=== PATIENT | male | born 1955 | race Caucasian/White ===

== ENCOUNTER → 2018-03-25 10:46 | Outpatient (CLI) | payer OTHER, SELFPAY ==
--- NOTE | 2018-03-25 | DI.NM.S_ITS ---
PROCEDURE: NM BONE SCAN WHOLE BODY RADIOPHARMACEUTICAL: 21.5 mCi Tc-99m MDP IV. INDICATIONS: CHRONIC PAIN OF RIGHT KNEE TECHNIQUE: Delayed whole-body scintigrams were obtained approximately 3-4 hours after intravenous injection of radiotracer. Anterior and posterior views were acquired from vertex to feet. Additional left and right oblique views of the knees were obtained. COMPARISON: [facility] [place], CR, KNEE SERIES RT, 06/20/2016, 14:26. [facility] [place], CR, XR KNEE ARTHRITIC SERIES RT, 12/13/2017, 15:42. [facility] [place], CR, XR KNEE ARTHRITIC SERIES RT, 04/17/2017, 15:32. [facility] [place], CR, XR KNEE ARTHRITIC SERIES RT, 02/13/2017, 16:29. [facility] [place], CR, KNEE SERIES RT, 01/12/2017, 11:17. [facility] [place], CR, KNEE SERIES RT, 12/13/2016, 14:17. [facility] [place], CR, XR KNEE ARTHRITIC SERIES RT, 03/19/2018, 13:02. FINDINGS: There is right knee medial hemiarthroplasty. There is increased uptake along the prosthesis and bone interface in the medial tibial plateau. The comparison x-ray of the knee shows subtle lucency at the bone/prosthesis interface. The scintigraphic findings are concerning for prosthesis loosening. No lesions are identified in skull, sternum, clavicles, scapulae, ribs, bony pelvis, and visualized shafts of the long bones. There is scoliosis. Foci of increased uptake in thoracic and lumbar spine demonstrate distribution indistinguishable from degenerative disc and facet disease. There are foci of increased periarticular activity involving shoulders bilaterally, wrists bilaterally, ankles and feet bilaterally, compatible with degenerative/arthritic changes. There is normal soft tissue uptake. IMPRESSION: 1. There is increased uptake in the right knee along the medial compartment at the prosthesis-bone interface. This correlates with radiolucency in the same area on x-ray, concerning for prosthesis loosening. Recommend clinical correlation. 2. Degenerative changes in spine and multiple peripheral joints. Dictated by: Tomi Live M.D. on 03/25/2018 at 16:09 Approved by: Tomi Live M.D. on 03/25/2018 at 17:15
== END ==
PROVIDERS: Family Provider Internal Medicine; PCP Internal Medicine; Visit Provider Physician Assistant Surgical
DX: M25.561 Pain in right knee (principal); M47.816 Spondylosis without myelopathy or radiculopathy, lumbar region; M47.814 Spondylosis without myelopathy or radiculopathy, thoracic region; M15.0 Primary generalized (osteo)arthritis; G89.29 Other chronic pain; Z96.651 Presence of right artificial knee joint
CPT/HCPCS: 78306; A9503

== ENCOUNTER 2018-04-12 11:04 | Inpatient (IN) | payer OTHER, SELFPAY ==
[2018-04-11 10:14] VITALS: BMI 36.4
[2018-04-12] VITALS (12 sets, daily range): BP systolic 97–158; BP diastolic 60–106; PULSE 68–92; RESP 10–20; TEMP 36.2–36.7; O2SAT 2–96; BMI 36.4
--- NOTE | 2018-04-12 11:21 | DI.RAD.S_ITS ---
PROCEDURE: XR KNEE RT 1TO2V INDICATIONS: prosthesis placement (post op) TECHNIQUE: 2 view(s) of the knee acquired. COMPARISON: [facility] [place], CR, XR KNEE ARTHRITIC SERIES RT, 04/02/2018, 13:39. FINDINGS: Bones: Patient is status post right knee joint arthroplasty. Hardware components are in expected positions. Visualized bony structures appear intact. Soft tissues: Overlying postoperative changes are noted, including a surgical drain projecting over the anterior distal femur, overlying surgical carla, subcutaneous emphysema, and a moderate knee joint effusion. IMPRESSION: Postsurgical changes of right total knee arthroplasty. Dictated by: Hemant Ceja M.D. on 04/12/2018 at 18:41 Approved by: Hemant Ceja M.D. on 04/12/2018 at 18:44
[2018-04-12] MEDS: LACTATED RINGERS 1,000 ML 42 ML IV ×2 (11:45→16:03)
[2018-04-12] MEDS: VANCOMYCIN 1,000 MG/200 ML FROZ.PIGGY 200 MG IV (13:18)
--- NOTE | 2018-04-12 14:00 | SUR.PREOP ---
Block start time [1346] . Monitoring initiated and maintained throughout procedure. Medications given per anesthesiologist instructions. Patient remained stable throughout procedure, no adverse reactions noted. Block end time [1356].
[2018-04-12] MEDS: CEFAZOLIN 2 GM/100 ML FROZ.PIGGY IV ×2 (14:20→22:46)
[2018-04-12] MEDS: TRANEXAMIC ACID 1,000 MG VIAL 1000 MG INJ ×2 (14:30→17:31)
--- NOTE | 2018-04-12 14:48 | SUR.OPER ---
Supine on padded OR bed. Pillow under head, arms secured on padded armboards <90 degree abduction. Safety belt across torso. Non-operative leg secured with tape over blanket over lower leg. Operative leg secured in DeMayo/Ruy positioner. Foam padded brace at thigh of operative leg.
[2018-04-12] MEDS: BUPIVACAINE LIPOSOME 266 MG/20 ML VIAL INJ (14:58)
[2018-04-12] MEDS: BUPIVACAINE 0.25% W/ EPI VIAL 50 ML INJ (14:58)
[2018-04-12] MEDS: POVIDONE-IODINE 15 ML, SODIUM CHLORIDE 0.9% 250 ML TOP (15:00)
--- NOTE | 2018-04-12 15:24 | PM.PROC.1 ---
Procedures Date/Time Date of procedure: 04/12/18 Time of procedure: 13:43 General Procedure description: Ultrasound guided adductor canal nerve block for post op pain control after right TKA by Dr. Guido. Risk and benefits of procedure discussed with patient. ASA monitoring applied to patient. O2 given via nasal cannula. 1 mg Versed and 50 mcg fentanyl given for procedural sedation. Skin site was prepped with chlorhexidine and allowed to fully dry. Sterile gloves, mask, hat and probe cover were used to maintain sterility. 2% lidocaine and 30ga needle was used to make a small skin wheal at needle insertion site. Under ultrasound guidance, a 21ga 100mm Pajunk needle was directed into the adductor canal near femoral artery and saphenous nerve at the level of mid thigh. Patient reported no parasthesias. After negative aspiration, 20 mL 0.5% ropivicaine and 10mg dexamethasone were injected around saphenous nerve. Patient tolerated procedure well.
--- NOTE | 2018-04-12 15:42 | SUR.OPER ---
Previous uni-compartment knee components removed and discarded, unable to read info on the implants.
--- NOTE | 2018-04-12 15:43 | SUR.OPER ---
Cultures submitted, 1) Right Knee tissue for PCD 2) right femoral tissue 3) right knee synovium fluid 4) right knee tibial tissue
[2018-04-12] MEDS: VANCOMYCIN 1,000 MG VIAL 1000 MG INTRA-ARTI (16:09)
--- NOTE | 2018-04-12 18:18 | PM.PREOP ---
Pre-operative Note Interval Note Pre-op Check: Yes History & Physical Reviewed by Physician and Yes Exam Performed Changes: No
--- NOTE | 2018-04-12 18:21 | P.OP_ITS ---
Operative Date/Time/Diagnoses Date of procedure: 04/12/18 Time of procedure: 18:04 Pre-op diagnosis: loose tibial component after right medial uni Post-op diagnosis: same Procedure & Clinicians Procedure: revision right total knee Same procedure as scheduled: Yes Indications: Patient has a history of a previous right knee medial compartment arthroplasty. The patient has had progressively worsening right knee pain with radiographic changes consistent with early tibial loosening including total body bone scan which was hot underneath the tibia. He was worked up with labs preoperatively which were not consistent with infection. He did not have previous problems with wound healing. Non-operative management has failed and the patient has requested revision right total knee replacement. The risks, benefits and alternatives to surgery were discussed with the patient prior to proceeding. Risks discussed included, but were not limited to, failure to relieve pain, stiffness, infection, nerve damage, deep venous thrombosis, pulmonary embolism, stroke, coma, heart attack, permanent paralysis and , as well as the potential need for eventual revision of the prosthetic. Surgeon: Rosenda Guido Estimator: Renetta Edmonds Anesthesia Type: General and Peripheral nerve block Operative Notes Findings: Mild generalized synovitis, evidence of early tibial loosening, no significant bone loss, good stability Closure Type: primary Specimen(s): other (Multiple cultures and PCR) Implants & Drains: Journey BCS 2 size 6 femur, 38 oval patella, size 6 tibia with a 12 by 100 stem, size 12 poly Applied: drain(s) Estimated Blood Loss (mL): 300 Blood products transfused: none Tourniquet time (min): 120 Procedure in detail: The patient was seen in the pre-operative area, where the patient identified the right knee as the operative site and this was marked with my initials. The patient received pre-operative antibiotics, and was taken to the operating room and placed on the operative table in the supine position. After satisfactory anesthesia, a time analysis clerk out was performed. The right leg was encircled with a tourniquet about the proximal thigh, and the leg was prepared from the toes to the tourniquet with ChloroPrep in the usual fashion and draped through sterile drapes. The leg was elevated and exsanguinated with Eschmark bandage and the tourniquet inflated to [250] mmHg pressure. The knee was approached through an approximately 22 cm incision centered over the patella incorporating the patient's previous incision and carried into the knee through a medial parapatellar arthrotomy. There was some moderate synovitis in the knee it was slightly high hemosiderin stained. There was a mild effusion. Synovectomy was performed. Dissection was carried around the proximal tibia and the patella was mobilized. Soft tissue was carefully mobilized around the patella the patella was measured with a caliper. Bone was resected from the patella and the patellar height was reconstituted with up an appropriate sized patellar component. The patient had an oval patella and drill holes were made for an oval patella. A cover was then placed on the patella. A small amount of additional lateral meniscus was resected. The proximal medial soft tissue was carefully mobilized to the mid sagittal line along the tibia. The distal femur was cut at 5?. A [+2] cut was used. It looked like an appropriate distal femoral cut and the cut was made without difficulty. The femoral component was removed after making the initial femoral cut and making sure that it had been carefully freed from the underlying cement mantle. There were no significant bony defects related to the previous unicompartment replacement. Cultures were sent of both the synovium and the soft tissue under the femoral component. All of the cement that had previously been placed was meticulously removed from the femur. Next attention was directed at the tibia. The PCL was resected. Retractors were meticulously placed around the proximal tibia. The tibial component appeared to be fairly grossly loosened. Combination of osteotomes a T PS and a punch were used to meticulously remove the tibial component. It was removed without difficulty. An extramedullary guide was used for the tibial cut. 1-2 mm were resected off the medial affected side. This resulted in approximately 12 mm of resection from the lateral side. The tibia was prepared. The rotation was assessed. The patient was placed in extension residual medial and lateral meniscus as well as any residual bone was carefully resected. [No] additional tibia was resected. Hemostasis was achieved especially posteriorly. Additional local was injected into the posterior capsule. The extension gap was assessed and additional releases for gap balancing were performed as necessary. It was checked with the gap director of business operations. Flexion balancing was performed using the 3? of external rotation from the estimate restored posterior femoral condyle and it was also measured with a gap director of business operations in flexion. I also used landmarks including Whitesides lines and the epicondylar axis. The rotation was assessed and the appropriate size femoral guide was placed on the distal femur and finishing cuts were made. There was no evidence of notching. The anterior, posterior and chamfer cuts were then made. The posterior osteophytes and soft tissues were then removed. The posterior capsule was injected with part of a mixture of 60 ml 0.25% Marcaine mixed with 20 ml Exparel for post operative pain control. The remainder of this mixture was injected into the capsule and subcutaneous tissues during cement curing. The tibial and femoral components were then placed and the knee placed through a range of motion. Range of motion was [0-130], with good stability throughout the range. The trials were then removed and the tibia was finished. There was good quality bone both on the lateral tibia and on the medial tibia. A size 6 tibia fit well. I placed a supplemental stem with a 12 by 100 mm stem to provide additional support. There was good quality bone in the proximal tibia. The bone was prepared with pulsatile lavage, and dried with a sponge. All residual cement and soft tissue was meticulously removed from the tibia and it was irrigated with pulse lavage. Cement was applied and the final prosthetics placed. Excess cement was removed during and after cement curing. A brief Betadine soak was performed. After confirming there was no extruded cement posteriorly, the final tibial insert was placed. The knee was copiously irrigated and the tourniquet deflated. Hemostasis was obtained with the [ Aquamantys system]. A drain was placed and brought out superolaterally. The capsule was closed with interrupted nonabsorbable suture. The subcutaneous layer was closed with barbed sutures, and the skin with a running 3-0 V-Lock suture and Surgical glue. An Aquacel Ag dressing was applied and the patient was taken to recovery having tolerated the procedure well. Complications: none Condition: stable Disposition: Acute Care Plan for aftercare: The patient will be maintained on a standard total knee replacement protocol with weight bearing as tolerated. We need to check his culture results to make sure there is no growth and I would anticipate discharge on Sunday. The patient will receive aspirin and sequential compression devices for DVT prophylaxis. The patient will be discharged home when safe for the home environment.
[2018-04-12] MEDS: LACTATED RINGERS 1,000 ML 125 ML IV (19:28)
[2018-04-12 20:45] LABS: Add Manual Diff / Slide Review NO; Basophils Percent Auto 0.3 % (0-2); Eosinophils Percent Auto 0.1 % (2-4); Hematocrit 41.2 % (41-53); Lymphocytes Percent Auto 4.1 % (25-40); Mean Corpuscular Hemoglobin 30.8 PG (26-34); Mean Corpuscular Volume 90.6 fL (80-100); Monocytes Percent Auto 1.5 % (3-14); Neutrophils Absolute Auto 8400 /uL (1500-7000); Platelet Count 183 X10^3/uL (150-400); Red Blood Cell Count 4.55 X10^6/uL (4.5-5.9); Red Cell Distribution Width 13.9 % (11.6-14.8)
[2018-04-12] MEDS: PRAMIPEXOLE 0.25 MG TABLET 0.5 MG PO (21:10)
[2018-04-12] MEDS: DOCUSATE 100 MG CAPSULE PO (21:11)
[2018-04-12] MEDS: ACETAMINOPHEN 325 MG TABLET 975 MG PO (21:11)
[2018-04-12] MEDS: ASPIRIN EC 81 MG TABLET PO (21:12)
[2018-04-12] MEDS: CARVEDILOL 25 MG TABLET PO (21:12)
[2018-04-12] MEDS: LISINOPRIL 10 MG TABLET PO (21:12)
[2018-04-13] VITALS (7 sets, daily range): BP systolic 121–147; BP diastolic 70–84; PULSE 66–74; RESP 16–20; TEMP 36.6–37.2; O2SAT 92–96
--- NOTE | 2018-04-13 00:22 | PC.NURSE ---
Evening Shift Note- Patient arrived to room from PACU via bed at 1845. Patient alert and oriented and able to make needs known to staff. Ice packs placed to right knee. patient oriented to bed and bed controls, room, bathroom, lights, phone, menu, and nguyễn bnell/tv remote. admission questions completed. NO complaitns of pain or n/v. Safety measures in place. call valladares and phone within reach. will continue to monitor.
[2018-04-13] MEDS: OXYCODONE IR 5 MG TABLET PO ×5 (03:32→21:05)
[2018-04-13 05:37] LABS: Hematocrit 38.2 % (41-53); Hemoglobin 13.1 g/dL (13.5-17.5)
--- NOTE | 2018-04-13 06:02 | PC.NURSE ---
175mL out of his right knee drain on noc shift.
[2018-04-13] MEDS: CEFAZOLIN 2 GM/100 ML FROZ.PIGGY IV ×3 (06:16→22:48)
[2018-04-13] MEDS: CARVEDILOL 25 MG TABLET PO ×2 (09:50→21:07)
[2018-04-13] MEDS: DOCUSATE 100 MG CAPSULE PO ×2 (09:51→21:07)
[2018-04-13] MEDS: ACETAMINOPHEN 325 MG TABLET 975 MG PO ×3 (09:51→21:05)
[2018-04-13] MEDS: LISINOPRIL 20 MG TABLET PO (10:04)
--- NOTE | 2018-04-13 10:35 | PT.IIE ---
Current Diagnoses Unilateral primary osteoarthritis, right knee (04/12/18) Presence of right artificial knee joint (04/12/18) Surgery Performed Operation Date: 04/12/18 13:15 Actual Procedures p Total Knee Arthroplasty Revision(Right) - Rosenda Guido MD Surgical History (Last Updated 04/11/18 @ 10:30 by Martha Healy, RN) Hx of lithotripsy (Acute) S/P trigger finger release (Acute) Status post cataract extraction of both eyes with insertion of intraocular lens (Acute) Medical History (Last Updated 04/11/18 @ 10:30 by Martha Healy RN) Afib (Acute) Cardiomyopathy (Acute) Diabetes (Acute) HTN (hypertension) (Acute) Kidney stone (Acute ~03/2018) LBBB (left bundle branch block) (Acute) EARLENE on CPAP (Acute) Pleurisy (Acute ~2015) RLS (restless legs syndrome) (Acute) Seizure (Acute) Physical Therapy Inpatient Evaluation/Re-Eval M1 PT/OT-IP Prior Functional Status Start: 04/13/18 11:08 Freq: NEEDED Status: Active Protocol: Document 04/13/18 10:35 [facility] (Rec: 04/13/18 11:23 [facility] [id number]) Medical Review Prior Functional Status Medical History Reviewed Yes Mobility and Gait indep. community gait until injury recently, was then using 4WW for gait to decrease WB on the RLE. Activities of Daily Living and IADL's modified indep. ADLs Prior Functional Level (Other details) was working up until his injury early 2017 Social History Household Members spouse Living Arrangements House Number of Floors (Floors) One Floor Number of Stairs To Enter/Railing? 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 He also has a standard walker at home along with his 4WW. M2 PT-IP Current Condition Start: 04/13/18 11:08 Freq: NEEDED Status: Active Protocol: Document 04/13/18 10:35 RCC (Rec: 04/13/18 11:23 [facility] [id number]) Physical Therapy Current Condition Current Condition Evaluation Date 04/13/18 Treatment Diagnosis R uni-knee revision to R TKA 04/12/18, impaired gait and mobility Weight Bearing Status Weight Bearing Status Weight Bear as Tolerated M3 PT-IP Subjective Start: 04/13/18 11:08 Freq: NEEDED Status: Active Protocol: Document 04/13/18 10:35 RCC (Rec: 04/13/18 11:23 [facility] [id number]) Subjective Physical Therapy Visit Type Type Initial Evaluation Visit Start Time 10:00 Visit Stop Time 10:35 Total Visit Minutes 35 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 Therapy Pain Assessment Pain When Pain Assessed At Rest Pain Present Pain Present Pain Reported Location Right Knee Intensity 4 Scale Used Numeric (1 - 10) M4 PT-IP Mobility and Gait Start: 04/13/18 11:08 Freq: NEEDED Status: Active Protocol: Document 04/13/18 10:35 [facility] (Rec: 04/13/18 11:23 [facility] [id number]) PT-Bed Mobility Assessment Supine to Sit Supine to Sit Standby Assistance Bedrails Scooting Scooting to Edge of Bed Independent PT-Transfer Assessment Sit to and From Stand Sit to and from Stand Independent Equipment Transfer Assistive Device Gait Belt Front Wheeled Walker Transfers Transfer Destination Chair Transfer Technique Stand Step Pivot Transfer Ability Level of Assist Standby Assistance Gait Assessment Gait Gait Assistance Required: Standby Assistance Distance (Feet) 80 Able to Maintain Weight Bearing Status Yes During Gait Assistive Devices Assistive Device Gait Belt Front Wheeled Walker Gait Deviations General Gait Pattern Antalgic Decreased Stride Length Wide Based Gait Factors Limiting Gait Function Factors Limiting Gait Function Decreased Activity Tolerance Decreased Strength Limited Range of Motion Pain Comments Gait Comments decreased R knee flexion during gait stiff-legged pattern. BP 148/85 after gait, MAP 111, MO 94 bpm. Mild fatigue, pain about the same per pt. Stair Climbing Assessment Comments Stair Climbing Comments did not assess this session PT-Balance Assessment Sitting Balance and Reactions Static Sitting Balance Ability Normal Dynamic Sitting Balance Ability Normal Standing Balance and Reactions Static Standing Balance Ability Good Dynamic Standing Balance Ability Good Device Used FWW M5 PT-IP Objective Assessments Start: 04/13/18 11:08 Freq: NEEDED Status: Active Protocol: Document 04/13/18 10:35 RCC (Rec: 04/13/18 11:23 [facility] [id number]) Orientation Orientation/Cognition Level of Alertness Alert Orientation Name Age Birthday Month Date Year Day of Week Place Situation Gross Range of Motion Lower Extremity ROM Assessment Right Impaired Impairments R knee AROM 8-75 degrees Strength Lower Extremity Strength Assessment Right Impaired Hip R flexion 3/5 Knee R extension and flexion 3/5 Ankle R DF 5/5 Coordination Assessment Gross Coordination Gross Coordination WNL Sensation Assessment Sensation Gross Sensation WNL Other Assessments Other Other Assessments R knee is wrapped with compression wrap, did not remove to inspect dressing M6 PT-IP Treatment Start: 04/13/18 11:08 Freq: NEEDED Status: Active Protocol: Document 04/13/18 10:35 RCC (Rec: 04/13/18 11:23 [facility] [id number]) Physical Therapy Treatment Exercises Exercises Ankle Pumps Heel Slides Education Education Provided Weight Bearing Status Post-Op Packet Safety M7 PT-IP Assessment and Plan Start: 04/13/18 11:08 Freq: NEEDED Status: Active Protocol: Document 04/13/18 10:35 RCC (Rec: 04/13/18 11:23 [facility] [id number]) PT Summary Assessment and Plan Potential Rehabilitation Potential Good Status of Condition at Evaluation Stable Summary Impairments Pain ROM Strength Bed Mobility Transfers Gait Activity Tolerance Assessment Summary POD #1 R medial compartment knee replacement (2016) converted to R TKA on 04/12/18 . Pt is able to ambulate household distances this session, with antalgic gait but no loss of balance. Pt has a standard walker and a 4WW, which he likely will be more stable with standard walker, but may benefit from FWW upon d/c, but expect he will be able to d/c home when medically stable. He will need to be able to manage stairs safely prior to d/c. Goals Bed Mobility Goal Independent Transfer Goal Independent Gait Goal Standby Assistance Gait Distance 150 Other Goals up/down 3 steps with L ascending rail and CGA. Days to Meet Goals 3 Frequency of Treatment Frequency Of Treatment Twice a Day Treatment Plan Physical Therapy Treatment Plan Bed Mobility Training Transfer Training Gait Training Therapeutic Exercise Post Op Education Discharge Planning Hot or Cold Pack Neuromuscular Re-ed Other Recommendations and Next Treatment prog. gait, stair training, CG Focus training if available. Recommendations To Nursing Amount of Assist Needed 1 Person Assist Discharge Recommendations PT Discharge Recommendations Home with Assistance Outpatient PT
--- NOTE | 2018-04-13 11:19 | P.PN_ITS ---
Subjective Date Patient Seen: 04/13/18 Time Patient Seen: 11:13 Interval history: Postop day 1 status post revision right knee arthroplasty conversion from uni condylar knee arthroplasty to total knee arthroplasty with Dr. Guido. Patient is doing well sitting up at bedside no complaints. Pain controlled. has [address], with bloody drainage in the canister Denies shortness of breath denies chest pain denies fever No Ivy Was up with physical therapy and walked the parra this morning [place] dressing in place Patient is on aspirin 81 mg b.i.d. and back on his usual warfarin 5 mg Planned discharge on Sunday a.m.. Patient's does not drive at night Exam Vital Signs (past 8 hours): - 04/13/18 06:01 04/13/18 08:00 04/13/18 08:20 Temperature 98.4 F 98.5 F Pulse Rate 66 68 Respiratory Rate 16 16 Blood Pressure 139/81 121/77 Pulse Oximetry 92 94 94 Oxygen Delivery Method Room Air Oxygen Flow Rate 0 Narrative Exam Narrative: General: Alert oriented no acute distress sitting at bedside in the chair. Respiratory: Unlabored breathing on room air cv: Regular rate Abdomen: Soft nontender Musculoskeletal: Right lower extremity with Tony bandage in mad[place] dressing in place. One Hemovac in place with bloody drainage in the canister approximately 50 mL. Demonstrates active dorsiflexion plantar flexion of the right foot. Sensation grossly intact to light touch in all distributions. Calf is soft. No redness erythema or signs or symptoms of infection. Other extremities benign with grossly normal range of motion and no tenderness. Objective Labs Result Diagrams: 04/13/18 04:58 Labs: Laboratory Results - last 24 hr 04/12/18 04/13/18 20:38 04:58 WBC 9.0 RBC 4.55 Hgb 14.0 13.1 L Hct 41.2 38.2 L MCV 90.6 MCH 30.8 MCHC 34.0 RDW 13.9 Plt Count 183 Neut % (Auto) 94.0 H Lymph % (Auto) 4.1 L Prentiss % (Auto) 1.5 L Eos % (Auto) 0.1 L Baso % (Auto) 0.3 Neut # (Auto) 8400 H Assessment & Plan Post-op Postoperative Procedures Operation Date: 04/12/18 13:15 Actual Procedures Side Surgeon p Total Knee Arthroplasty Revision Right Rosenda A Guido, MD Postoperative day: 1 Postoperative status: doing well Postoperative status narrative: Doing well postop day 1 a right knee arthroplasty revision from unicondylar to total knee arthroplasty. Postoperative plan narrative: 1. Weight bear as tolerated 2. Keep Hemovac drain throughout today removed tomorrow a.m. prior to discharge 3. Recheck cultures prior to discharge. at this time all Gram stains have been negative 4. Complete postoperative antibiotics- last dose scheduled this afternoon 5. Aspirin 81 mg b.i.d., SCDs for DVT prophylaxis 6. Patient has resumed 5 mg warfarin, normal home dose 7. Plan discharge home Sunday morning 8. Standard follow-up 10-14 days -- 04/26/2018 ORIANA Horowitzl
[2018-04-13] MEDS: ASPIRIN EC 81 MG TABLET PO ×2 (11:39→21:07)
--- NOTE | 2018-04-13 12:03 | PC.NURSE ---
Addendum entered by Sarahi Mcbride R.N. 04/13/18 14:46: Clarified with Dr Guido, replaced IV for ABX until cultures come back negative. Original Note: Am shift Pt is feeling well post op pain has been controlled with Oxycodone PO, hemovac with sang. drainage, IV replaced Per Verbal Dr Guido, as Pt will continue IV ABX until neg culture. Lungs CTA, CPAP at Noc. Ambulating with PT in halls, at bedside, agreeable to d/c in AM, pending culture results.
--- NOTE | 2018-04-13 13:30 | PT.IPTN ---
Current Diagnoses Unilateral primary osteoarthritis, right knee (04/12/18) Presence of right artificial knee joint (04/12/18) Surgery Performed Operation Date: 04/12/18 13:15 Actual Procedures p Total Knee Arthroplasty Revision(Right) - Rosenda Guido MD Physical Therapy Treatment Note M2 PT-IP Current Condition Start: 04/13/18 11:08 Freq: NEEDED Status: Active Protocol: Document 04/13/18 13:30 [facility] (Rec: 04/13/18 13:41 [facility] [id number]) Physical Therapy Current Condition Current Condition Evaluation Date 04/13/18 Treatment Diagnosis R uni-knee revision to R TKA 04/12/18, impaired gait and mobility Weight Bearing Status Weight Bearing Status Weight Bear as Tolerated M3 PT-IP Subjective Start: 04/13/18 11:08 Freq: NEEDED Status: Active Protocol: Document 04/13/18 13:30 [facility] (Rec: 04/13/18 13:41 [facility] [id number]) Subjective Physical Therapy Visit Type Type Treatment Note Visit Start Time 12:55 Visit Stop Time 13:30 Total Visit Minutes 35 Notes present during session Number of BOX BRANDER Visits 0 Physical Therapy Visit Comments Patient Comments pt states that he thinks the anesthesia has worn off. Therapy Pain Assessment Pain When Pain Assessed At Rest Pain Present Pain Present Pain Reported Location Right Knee Intensity 5 Scale Used Numeric (1 - 10) Pain Management Techniques Apply Cold M4 PT-IP Mobility and Gait Start: 04/13/18 11:08 Freq: NEEDED Status: Active Protocol: Document 04/13/18 13:30 [facility] (Rec: 04/13/18 13:41 [facility] [id number]) PT-Bed Mobility Assessment Sit to Supine Sit to Supine Independent PT-Transfer Assessment Sit to and From Stand Sit to and from Stand Independent Equipment Transfer Assistive Device Gait Belt Front Wheeled Walker Transfers Transfer Destination Bed Transfer Technique Stand Step Pivot Transfer Ability Level of Assist Standby Assistance Gait Assessment Gait Gait Assistance Required: Standby Assistance Distance (Feet) 175 Assistive Devices Assistive Device Gait Belt Front Wheeled Walker Gait Deviations General Gait Pattern Antalgic Decreased Stride Length Factors Limiting Gait Function Factors Limiting Gait Function Decreased Activity Tolerance Decreased Strength Limited Range of Motion Pain Stair Climbing Assessment Evaluation Level of Assist On Stairs Standby Assistance Devices Stair Climbing Assistive Devices Left Railing Technique/Endurance Stair Climbing Direction Ascend and Descend Stair Climbing Technique Step to Step Number of Steps Climbed 3 Query Text: Stair Climbing Set # Repetitions (reps) 1 M5 PT-IP Objective Assessments Start: 04/13/18 11:08 Freq: NEEDED Status: Active Protocol: Document 04/13/18 13:30 [facility] (Rec: 04/13/18 13:41 [facility] [id number]) Gross Range of Motion Lower Extremity ROM Assessment Right Impaired Impairments R knee AROM: 3-80 degrees M6 PT-IP Treatment Start: 04/13/18 11:08 Freq: NEEDED Status: Active Protocol: Document 04/13/18 13:30 [facility] (Rec: 04/13/18 13:41 [facility] [id number]) Physical Therapy Treatment Exercises Exercises Quad Sets Knee ROM Measurement 3-80 M7 PT-IP Assessment and Plan Start: 04/13/18 11:08 Freq: NEEDED Status: Active Protocol: Document 04/13/18 13:30 [facility] (Rec: 04/13/18 13:41 [facility] [id number]) PT Summary Assessment and Plan Summary Impairments Pain ROM Strength Gait Activity Tolerance Progress Towards Goals Progressing Toward Goals Assessment Summary POD #1. Pt able to manage stairs safely using L ascending rail and SBA. He has slight increased R knee pain, ice was placed on R knee after session. Pt appears to be safe to d/c home when medically stable, is able to assist upon d/c. Discussed the importance of knee ROM activities to progress his mobility and rehab. Goals Bed Mobility Goal Independent Transfer Goal Independent Gait Goal Standby Assistance Gait Distance 150 Other Goals up/down 3 steps with L ascending rail and CGA. Days to Meet Goals 3 Frequency of Treatment Frequency Of Treatment Twice a Day Treatment Plan Other Recommendations and Next Treatment progress gait, review TKA Focus exercises Recommendations To Nursing Amount of Assist Needed 1 Person Assist Discharge Recommendations PT Discharge Recommendations Home with Assistance Outpatient PT
--- NOTE | 2018-04-13 14:05 | CM.DANOTE ---
Patient is a 62 year old male who was admitted on 04/12/18 for Right Knee Revision. Pt has [facility] for insurance and his PCP is Dr. Horner. EMR was reviewed. Per Ortho MD, pt tolerated procedure well and ordering PT eval. Per PT, pt ambulating well and was able to practice stairs and recommending safe d/c home with spouse assist and outpt PT. SW met bedside with pt and explained role and pt confirmed that he lives at home in [place] with his who is retired and able to assist at d/c. Pt had surgery previously on his knee and was able to d/c home with outpt PT. Pt denies any hx of HH or SNF and does not anticipate any SW needs at d/c. Preference is to d/c home via spouse POV when medically stable. Plan: SW to follow for likely pt d/c home via spouse POV when medically stable. SW to follow for any further identified discharge planning needs. KATHERINE Jensen Discharge Planning/Care Management CM Discharge Assessment Start: 04/13/18 14:03 Freq: Status: Active Protocol: Document 04/13/18 14:03 [facility] (Rec: 04/13/18 14:05 [facility] [id number]) Discharge Planning Assessment Assigned Vice President Marketing & Development KATHERINE Garcia Advance Directives? No History Provided By Patient Medical Record Has Patient been admitted in last 30 No days? Prior Living Arrangements House Household Members spouse Type of transporation used prior to Drives own vehicle admit Comment Lives at home with spouse in [place] and is Independent at baseline Independent with ADL's Yes Is patient alert and oriented? Yes Caregiver for Another No DME Already Rented / Owned Crutches Comment Waiting for PT eval and recommendations towards likely home Barriers to Discharge No Discharge Plan Home Community Services Physical Therapy Transportation Arrangement Spouse retired and likely can provide transport Referrals Initiated None needed Whiteboard Updated in Patient Room with Yes name and ext. # of Vice President Marketing & Development Review Status In Process Please Provide Date Initial DC 04/13/18 Assessment Was Performed Next Review Type Continued Stay Review Pre-Anesthesia Assessment Start: 04/11/18 10:14 Freq: Status: Complete Protocol: Document 04/11/18 10:14 [facility] (Rec: 04/11/18 10:26 [facility] [id number]) Pre-Anesthesia Assessment Patient Information Reviewed Via Phone Assessment Assessment Completed With Patient Comment PAC Assessment completed 04/10 Primary Care Provider Matilda Horner Seen Specialist in Last 12 Months Yes Specialist Seen Pourer Off Orthopedist Urologist Primary Language [place] Bin Packer Required No Height 175.26 cm Weight 112.037 kg Body Mass Index (BMI) 36.4 Hearing Ability Normal Visual Impairment No Limitations Visual Assist None Dentition Type Teeth, Natural Present Barriers to Learning None Other Aids No Hx Anesthesia Reactions No Hx Family Anesthesia Reaction No Hx Malignant Hyperthermia No Hx Blood Transfusions No Anesthesia Review 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 No Does patient have LOPEZ/SOB No Hx Sleep Apnea Yes CPAP/BIPAP use prescribed and used routinely Will Bring CPAP/BIPAP DOS Yes Currently Taking a Beta Jadiel Yes: Carvedilol Can You Climb a Flight of Stairs Without Yes SOB Hx Chest Pain No Hx SOB No Hx Syncope or Dizziness Yes Anti-Coagulant Therapy Yes: Warfarin-pt stopped 04/07 per PCP Has a Pourer Off Yes: Dr. Brush visit 12/18/17 Cardiac Testing Yes: Nuc stress 08/17/16 Hx Pacemaker/ICD No Pacemaker Rep Required? No Comment Cardiac notes, tests to surgery folder for dos Diet Type At Home Regular dysphagia No Diabetes Yes: Pt states he is pre- diabetic, no follow-up by PCP Comment Glucose 254 on pre-op lab Marital Status Lives With spouse Support System Spouse Patient Discharge Plan Description Return Home Feels Safe in Current Environment Yes Been Physically Hurt or Threatened By a No Person in Current Environment Do you have thoughts of harming yourself None or others? Are you currently considering suicide? No Do you have a plan to hurt yourself or No Plan others? Do You Have Any Spiritual Beliefs That No May Affect Your HC Choices? Do You Have Any Cultural Practices That No May Affect Your HC Choices? Who Can We Speak to About Patient's Care Family, friends Identifying Code for Release of Patient Declines to issue Information Health Care Proxy/Next of Kin Sunita () Health Care Proxy Emergency Contact Name Sunita () Emergency Contact Advance Directives? No PAC Instructions Bring CPAP/BIPAP Durable medical equipment Medications to take/avoid Nasal antibiotic No ETOH/petroleum product on skin DOS NPO Post-op transportation Pre-surgical wash Sensory aids Sturdy shoes/comfortable clothes Do not bring valuables and remove jewelry
--- NOTE | 2018-04-13 14:42 | PC.NURSE ---
265 mL was drained from HemoVac during Day Shift 04/13/18. Amount was charted in I&O under Output, Other Amount.
[2018-04-13] MEDS: OXYCODONE/ACETAMINOPHEN 5/325 TABLET 1 TAB PO (15:58)
[2018-04-13] MEDS: WARFARIN 5 MG TABLET PO (16:47)
[2018-04-13] MEDS: LISINOPRIL 10 MG TABLET PO (21:07)
[2018-04-13] MEDS: PRAMIPEXOLE 0.25 MG TABLET 0.5 MG PO (21:08)
[2018-04-14] VITALS: BP 144/85; PULSE 60; RESP 17; TEMP 36.6; O2SAT 95
[2018-04-14] MEDS: OXYCODONE IR 5 MG TABLET PO ×3 (04:10→11:14)
[2018-04-14 04:50] VITALS: BP 154/91; PULSE 73; RESP 20; TEMP 36.6; O2SAT 93
[2018-04-14] MEDS: CEFAZOLIN 2 GM/100 ML FROZ.PIGGY IV (06:04)
--- NOTE | 2018-04-14 06:35 | PC.NURSE ---
Shift note: Pt reporting increasing difficulty rising from bed and ambulating to bathroom despite medication management per MAR overnight. Will notify day shift to f/u with ortho.
[2018-04-14 08:00] VITALS: BP 164/95; PULSE 76; RESP 18; TEMP 36.9; O2SAT 96
--- NOTE | 2018-04-14 08:18 | PM.DS.1 ---
History of Present Illness Chief complaint: right knee [id number] Discharge Providers Date of admission: 04/12/18 11:04 Primary care physician: Matilda Horner MD Consults: 04/12/18 11:21 Consult to Anesthesiology Routine Comment: Consulting Provider: Anesthesiologist Reason for consultation: Regional block for post operative pain control 04/12/18 11:42 Consult to Respiratory Therapy Evaluate & Treat Comment: Physician Instructions: Evaluate and treat 04/12/18 19:11 Consult to Discharge Planning Routine Comment: Consult to Physical Therapy Evaluate & Treat Comment: Physician Instructions: postop TKA protocol Consult to Respiratory Therapy Evaluate & Treat Comment: Physician Instructions: Evaluate and treat Discharge provider: Deann Banegas MD Discharge Date: 04/14/18 Summary Discharge Diagnosis: Right knee arthritis Hospital Course: Patient was admitted to the floor after his revision right knee replacement conversion from unicondylar knee replacement to total knee replacement. Patient did well on the floor tolerated an oral diet. He worked with physical therapy and was weight-bearing as tolerated on the right knee. Patient was tolerating p.o. pain medications and was appropriate for home discharge on postoperative day 2. Drain was pulled on postoperative day 2. The patient completed his 24 hr of antibiotics. Patient has been on aspirin 81 mg b.i.d. as well as his usual warfarin Postoperative plan narrative: 1. Weight bear as tolerated 2. DC HV drain 3. at this time all Gram stains have been negative 4. postop abx complete 5. Aspirin 81 mg b.i.d., SCDs for DVT prophylaxis 6. Patient has resumed 5 mg warfarin, normal home dose 7. Plan discharge home Sunday 8. Standard follow-up 10-14 days -- 04/26/2018 [facility] Com[facility]ical Status at Discharge Cognitive/behavioral status at discharge: Baseline Functional status at discharge: independent ambulation Overall status at discharge: patient is progressing back to baseline Time Spent with Patient Less than 30 minutes Exam Vital Signs (past 8 hours): - 04/14/18 04:50 Temperature 98 F Pulse Rate 73 Respiratory Rate 20 Blood Pressure 154/91 H Pulse Oximetry 93 Oxygen Delivery Method Room Air Oxygen Flow Rate 0 Narrative Exam Narrative: Exam Narrative: General: Alert oriented no acute distress sitting at bedside in the chair. Respiratory: Unlabored breathing on room air cv: Regular rate Abdomen: Soft nontender Musculoskeletal: Right lower extremity with Tony bandage in madison dressing in place. One Hemovac in place with bloody drainage in the canister approximately 30 mL. Demonstrates active dorsiflexion plantar flexion of the right foot. Sensation grossly intact to light touch in all distributions. Calf is soft. No redness erythema or signs or symptoms of infection. Other extremities benign with grossly normal range of motion and no tenderness. Total output over the last 24 hr and the drain 285mL Objective Labs Result Diagrams: 04/13/18 04:58 Labs: Microbiology: Intraoperative Gram stains final without growth. Cultures still pending Discharge Plan Discharge Plan Patient Disposition: Home Discharge Med Rec/Prescriptions Prescriptions: New docusate sodium 100 mg Capsule 100 mg PO BID Qty: 30 RF: 1 ondansetron 4 mg Tablet,Disintegrating 4 mg PO Q4HR PRN (Reason: Nausea) Qty: 7 RF: 1 oxycodone 5 mg Tablet 5 mg PO Q3HR PRN (Reason: Pain, Moderate (4-6)) Qty: 40 RF: 0 aspirin 81 mg Tablet,Delayed Release (Dr/Ec) 81 mg PO BID Qty: 60 RF: 0 hydroxyzine pamoate 25 mg capsule 25 mg PO Q6HR PRN (Reason: Nausea) Qty: 30 RF: 0 Continue fluticasone [Flonase Allergy Relief] 9.9 ML spray,suspension 2 spray Intranasal QDAY Qty: 0 RF: 0 lisinopril 20 mg Tablet 20 mg PO QAM RF: 0 lisinopril 20 mg Tablet 10 mg PO BEDTIME RF: 0 warfarin 5 mg Tablet 5 mg PO DAILY RF: 0 pramipexole [Mirapex] 0.25 mg Tablet 2 tab PO BEDTIME RF: 0 azelastine 137 mcg (0.1 %) Aerosol,[place] 2 spray INTRANASAL BID PRN (Reason: seasonal allergies) RF: 0 carvedilol 25 mg tablet 1 tab PO BID RF: 0 Discontinued carvedilol 25 mg Tablet 25 mg PO BID RF: 0 hydrocodone-acetaminophen 5-325 mg Tablet 1 tab PO BID PRN (Reason: pain) RF: 0 Follow up/Referrals: Matilda Horner MD [Primary Care Provider] - Rosenda Guido MD [Physician] - (Follow-up appointment with Pola England at [facility] April 26, 2018 4:00 PM) Provider Discharge Instructions Diet: Diet as Tolerated Activity: Weight bear as tolerated Skin/Wound/Dressing Care Report to your healthcare provider any signs of infection, such as:: chills, fever, night sweats, increased pain, unusual drainage and unusual redness Dressing: Keep dressing clean dry and intact. Maintain madison dressing until follow-up. Visit Report/Discharge Packet Instructions: Type 2 Diabetes, DI for Diabetes Type 1 -- Adult, The Importance of Counting Carbs If You Have Diabetes, What to Eat if You Have Diabetes Visit Report Forms: Stroke Signs & Symptoms Discharge Data Primary Care Provider: Matilda Horner Attending Provider: Rosenda Guido Admit Date/Time: 04/12/18 11:04 Quality VTE Deep Vein Thrombosis/Pulmonary Embolism Present on Admission: No
[2018-04-14] MEDS: CARVEDILOL 25 MG TABLET PO (08:22)
[2018-04-14] MEDS: ACETAMINOPHEN 325 MG TABLET 975 MG PO (08:22)
[2018-04-14] MEDS: POLYETHYLENE GLYCOL 3350 17 GM POWD.PACK PO (08:22)
[2018-04-14] MEDS: DOCUSATE 100 MG CAPSULE PO (08:22)
[2018-04-14] MEDS: ASPIRIN EC 81 MG TABLET PO (08:22)
[2018-04-14] MEDS: LISINOPRIL 20 MG TABLET PO (08:22)
--- NOTE | 2018-04-14 08:26 | P.DS_ITS ---
History of Present Illness Chief complaint: right knee [id number] Discharge Providers Date of admission: 04/12/18 11:04 Primary care physician: Matilda Horner MD Consults: 04/12/18 11:21 Consult to Anesthesiology Routine Comment: Consulting Provider: Anesthesiologist Reason for consultation: Regional block for post operative pain control 04/12/18 11:42 Consult to Respiratory Therapy Evaluate & Treat Comment: Physician Instructions: Evaluate and treat 04/12/18 19:11 Consult to Discharge Planning Routine Comment: Consult to Physical Therapy Evaluate & Treat Comment: Physician Instructions: postop TKA protocol Consult to Respiratory Therapy Evaluate & Treat Comment: Physician Instructions: Evaluate and treat Discharge provider: Deann Banegas MD Discharge Date: 04/14/18 Summary Discharge Diagnosis: Right knee arthritis Hospital Course: Patient was admitted to the floor after his revision right knee replacement conversion from unicondylar knee replacement to total knee replacement. Patient did well on the floor tolerated an oral diet. He worked with physical therapy and was weight-bearing as tolerated on the right knee. Patient was tolerating p.o. pain medications and was appropriate for home discharge on postoperative day 2. Drain was pulled on postoperative day 2. The patient completed his 24 hr of antibiotics. Patient has been on aspirin 81 mg b.i.d. as well as his usual warfarin Postoperative plan narrative: 1. Weight bear as tolerated 2. DC HV drain 3. at this time all Gram stains have been negative 4. postop abx complete 5. Aspirin 81 mg b.i.d., SCDs for DVT prophylaxis 6. Patient has resumed 5 mg warfarin, normal home dose 7. Plan discharge home Sunday 8. Standard follow-up 10-14 days -- 04/26/2018 [facility] Commerical Status at Discharge Cognitive/behavioral status at discharge: Baseline Functional status at discharge: independent ambulation Overall status at discharge: patient is progressing back to baseline Time Spent with Patient Less than 30 minutes Exam Vital Signs (past 8 hours): - 04/14/18 04:50 Temperature 98 F Pulse Rate 73 Respiratory Rate 20 Blood Pressure 154/91 H Pulse Oximetry 93 Oxygen Delivery Method Room Air Oxygen Flow Rate 0 Narrative Exam Narrative: Exam Narrative: General: Alert oriented no acute distress sitting at bedside in the chair. Respiratory: Unlabored breathing on room air cv: Regular rate Abdomen: Soft nontender Musculoskeletal: Right lower extremity with Tony bandage in madison dressing in place. One Hemovac in place with bloody drainage in the canister approximately 30 mL. Demonstrates active dorsiflexion plantar flexion of the right foot. Sensation grossly intact to light touch in all distributions. Calf is soft. No redness erythema or signs or symptoms of infection. Other extremities benign with grossly normal range of motion and no tenderness. Total output over the last 24 hr and the drain 285mL Objective Labs Result Diagrams: 04/13/18 04:58 Labs: Microbiology: Intraoperative Gram stains final without growth. Cultures still pending Discharge Plan Discharge Plan Patient Disposition: Home Discharge Med Rec/Prescriptions Prescriptions: New docusate sodium 100 mg Capsule 100 mg PO BID Qty: 30 RF: 1 ondansetron 4 mg Tablet,Disintegrating 4 mg PO Q4HR PRN (Reason: Nausea) Qty: 7 RF: 1 oxycodone 5 mg Tablet 5 mg PO Q3HR PRN (Reason: Pain, Moderate (4-6)) Qty: 40 RF: 0 aspirin 81 mg Tablet,Delayed Release (Dr/Ec) 81 mg PO BID Qty: 60 RF: 0 hydroxyzine pamoate 25 mg capsule 25 mg PO Q6HR PRN (Reason: Nausea) Qty: 30 RF: 0 Continue fluticasone [Flonase Allergy Relief] 9.9 ML spray,suspension 2 spray Intranasal QDAY Qty: 0 RF: 0 lisinopril 20 mg Tablet 20 mg PO QAM RF: 0 lisinopril 20 mg Tablet 10 mg PO BEDTIME RF: 0 warfarin 5 mg Tablet 5 mg PO DAILY RF: 0 pramipexole [Mirapex] 0.25 mg Tablet 2 tab PO BEDTIME RF: 0 azelastine 137 mcg (0.1 %) Aerosol,[place] 2 spray INTRANASAL BID PRN (Reason: seasonal allergies) RF: 0 carvedilol 25 mg tablet 1 tab PO BID RF: 0 Discontinued carvedilol 25 mg Tablet 25 mg PO BID RF: 0 hydrocodone-acetaminophen 5-325 mg Tablet 1 tab PO BID PRN (Reason: pain) RF: 0 Follow up/Referrals: Matilda Horner MD [Primary Care Provider] - Rosenda Guido MD [Physician] - (Follow-up appointment with Pola England at [facility] [facility] April 26, 2018 4:00 PM) Provider Discharge Instructions Diet: Diet as Tolerated Activity: Weight bear as tolerated Skin/Wound/Dressing Care Report to your healthcare provider any signs of infection, such as:: chills, fever, night sweats, increased pain, unusual drainage and unusual redness Dressing: Keep dressing clean dry and intact. Maintain madison dressing until follow-up. Visit Report/Discharge Packet Instructions: Type 2 Diabetes, DI for Diabetes Type 1 -- Adult, The Importance of Counting Carbs If You Have Diabetes, What to Eat if You Have Diabetes Visit Report Forms: Stroke Signs & Symptoms Discharge Data Primary Care Provider: aMtilda Horner Attending Provider: Rosenda Guido Admit Date/Time: 04/12/18 11:04 Quality VTE Deep Vein Thrombosis/Pulmonary Embolism Present on Admission: No
--- NOTE | 2018-04-14 11:00 | PT.IPTN ---
Current Diagnoses Unilateral primary osteoarthritis, right knee (04/12/18) Presence of right artificial knee joint (04/12/18) Surgery Performed Operation Date: 04/12/18 13:15 Actual Procedures p Total Knee Arthroplasty Revision(Right) - Rosenda Guido MD Physical Therapy Treatment Note M2 PT-IP Current Condition Start: 04/13/18 11:08 Freq: NEEDED Status: Active Protocol: Document 04/14/18 11:00 [facility] (Rec: 04/14/18 11:12 [facility] [id number]) Physical Therapy Current Condition Current Condition Evaluation Date 04/13/18 Treatment Diagnosis R uni-knee revision to R TKA 04/12/18, impaired gait and mobility Weight Bearing Status Weight Bearing Status Weight Bear as Tolerated M3 PT-IP Subjective Start: 04/13/18 11:08 Freq: NEEDED Status: Active Protocol: Document 04/14/18 11:00 [facility] (Rec: 04/14/18 11:12 [facility] [id number]) Subjective Physical Therapy Visit Type Type Treatment Note Visit Start Time 10:36 Visit Stop Time 11:00 Total Visit Minutes 24 Notes present during session Number of [employer] Visits 0 Physical Therapy Visit Comments Patient Comments Pt feels confident in d/c home today, he politely refused stairs; his main concern is wanting to have a BM. Therapy Pain Assessment Pain When Pain Assessed At Rest Pain Present Pain Present Pain Reported M4 PT-IP Mobility and Gait Start: 04/13/18 11:08 Freq: NEEDED Status: Active Protocol: Document 04/14/18 11:00 [facility] (Rec: 04/14/18 11:12 [facility] [id number]) PT-Transfer Assessment Sit to and From Stand Sit to and from Stand Standby Assistance Equipment Transfer Assistive Device Gait Belt 4 Wheeled Walker Transfers Transfer Destination Toilet Transfer Technique Stand Step Pivot Transfer Ability Level of Assist Standby Assistance Gait Assessment Gait Gait Assistance Required: Standby Assistance Distance (Feet) 10 Assistive Devices Assistive Device Gait Belt Front Wheeled Walker Gait Deviations General Gait Pattern Antalgic Decreased Stride Length Decreased Feet Clearance Step-to Gait Factors Limiting Gait Function Factors Limiting Gait Function Decreased Activity Tolerance Decreased Strength Limited Range of Motion Pain Comments Gait Comments pt refused respectfully further gait, wanting to attempt BM M5 PT-IP Objective Assessments Start: 04/13/18 11:08 Freq: NEEDED Status: Active Protocol: Document 04/13/18 13:30 [facility] (Rec: 04/13/18 13:41 [facility] [id number]) Gross Range of Motion Lower Extremity ROM Assessment Right Impaired Impairments R knee AROM: 3-80 degrees M6 PT-IP Treatment Start: 04/13/18 11:08 Freq: NEEDED Status: Active Protocol: Document 04/14/18 11:00 [facility] (Rec: 04/14/18 11:12 [facility] [id number]) Physical Therapy Treatment Exercises Exercises Ankle Pumps Heel Slides Other Treatments Other Treatment Performed Reviewed TKA exercises for HEP - Ankle pumps (performed), quad sets, passive knee extension, heel slides (supine and seated- performed seated x10), SAQ and SLR. Discussed in detail and notes on sheet of what position to be in for each exercise, timing and frequency. M7 PT-IP Assessment and Plan Start: 04/13/18 11:08 Freq: NEEDED Status: Active Protocol: Document 04/14/18 11:00 [facility] (Rec: 04/14/18 11:12 [facility] [id number]) PT Summary Assessment and Plan Summary Assessment Summary POD #2 R TKA. Pt with increased pain today, but able to transfer and ambulate short distances with SBA and FWW. Pt's is able to assist at home. Post-op exercises reviewed in detail with notes on his sheet with him and his present. Pt has performed stairs, and was able to tolerate household distance gait yesterday, which he politely refused further gait and stairs today due to need to attempt a bowel movement. Goals Bed Mobility Goal Independent Transfer Goal Independent Gait Goal Standby Assistance Gait Distance 150 Other Goals up/down 3 steps with L ascending rail and CGA. Days to Meet Goals 3 Frequency of Treatment Frequency Of Treatment Twice a Day Treatment Plan Other Recommendations and Next Treatment likely d/c, if not then Focus progress gait and TKA exercises, stairs Recommendations To Nursing Amount of Assist Needed 1 Person Assist Discharge Recommendations PT Discharge Recommendations Home with Assistance Outpatient PT Other Discharge Recommendations OP PT set up for 04/18/17
[2018-04-22 16:05] LABS: Bacteria Det by PCR Univ WA SEE SEPERATE REPORT
== END 2018-04-14 12:00 | disposition home or self-care (01) | DRG 468 ==
PROVIDERS: Admitting Provider Orthopaedic Surgery; Family Provider Internal Medicine; PCP Internal Medicine; Visit Provider Orthopaedic Surgery
PROC: 0SRC0J9 Replacement of Right Knee Joint with Synthetic Substitute, Cemented, Open Approach (ICD-10-PCS; principal; 2018-04-12 13:15)
DX: T84.032A Mechanical loosening of internal right knee prosthetic joint, initial encounter (principal); I48.91 Unspecified atrial fibrillation; G47.33 Obstructive sleep apnea (adult) (pediatric); I44.7 Left bundle-branch block, unspecified; I10 Essential (primary) hypertension; Z79.01 Long term (current) use of anticoagulants
CPT/HCPCS: 36415; 64450; 73560; 82962; 85014; 85018; 85025; 87070; 87075; 87205; 87801; 94762; 97110; 97116; 97161; 97530; C1776; C9290; J0690; J1100; J2250; J2274; J2405; J2704; J2795; J3010; J3370

== ENCOUNTER → 2020-07-29 13:39 | Outpatient (CLI) | payer MEDICARE, OTHER, SELFPAY ==
[2018-04-12 19:19] VITALS: BMI 36.4
--- NOTE | 2020-07-29 | DI.RAD.S_ITS ---
PROCEDURE: XR HIP W PEL IF DONE LT 2V INDICATIONS: PAIN TECHNIQUE: AP pelvis with lateral view(s) of the left hip(s). COMPARISON: [facility], CR, [id number] W PEL IF PERFORMED, 05/15/2016, 15:33. FINDINGS: Bones: No fractures or dislocations. Pelvic ring appears intact. No suspicious bony lesions. Soft tissues: The visualized bowel gas pattern is normal. No suspicious soft tissue calcifications. IMPRESSION: A slight degree of symmetric degenerative joint space narrowing is present, no prior new trauma found. Dictated by: Matheus Smith M.D. on 07/29/2020 at 16:59 Approved by: Matheus Smith M.D. on 07/29/2020 at 16:59
--- NOTE | 2020-07-29 | DI.RAD.S_ITS ---
PROCEDURE: XR KNEE LT 3V INDICATIONS: PAIN TECHNIQUE: 3 views of the knee were acquired. COMPARISON: [facility], CR, XR KNEE RT 1TO2V, 04/12/2018, 18:37. FINDINGS: Bones: No fractures or dislocations. No suspicious bony lesions. Soft tissues: No joint effusion. No suspicious soft tissue calcifications. IMPRESSION: No trauma. Source of pain is not seen. Dictated by: Matheus Smith M.D. on 07/29/2020 at 16:59 Approved by: Matheus Smith M.D. on 07/29/2020 at 17:00
--- NOTE | 2020-07-29 13:45 | DI.RAD.S_ITS ---
This report includes an Addendum and supersedes previous reports for this exam. PROCEDURE: XR KNEE RT 3V INDICATIONS: PAIN TECHNIQUE: 3 views of the knee were acquired. COMPARISON: [facility], CR, XR KNEE ARTHRITIC SERIES RT, 04/29/2018, 14:50. [facility], CR, XR KNEE RT 1TO2V, 04/12/2018, 18:37. [facility], CR, XR KNEE ARTHRITIC SERIES RT, 09/26/2019, 16:20. [facility], CR, XR KNEE ARTHRITIC SERIES RT, 03/26/2019, 15:13. [facility], CR, XR KNEE ARTHRITIC SERIES RT, 08/21/2018, 15:42. FINDINGS: Bones: Stable alignment of right knee arthroplasty with prosthetic components in expected unchanged positions. No change in periprosthetic lucency involving the tibial component.. Soft tissues: Small joint effusion. No suspicious soft tissue calcifications. IMPRESSION: Mild periprosthetic lucency again seen along the hardware/bone interface of the tibial component which appears unchanged and could represent mild loosening. Attention on follow-up recommended. Dictated by: Ivan Caicedo [facility] Interpreted: Timothy Roland MD on 08/05/2020 at 14:34 Approved by: Jas Ann on 08/11/2020 at 17:15 ADDENDUM: Correction: Periprosthetic lucency is at the cement bone interface, again possibly reflecting hardware loosening and recommend attention on serial radiographic follow-up. Dictated by: Mane Tanner M.D. on 08/11/2020 at 17:30 Approved by: Mane Tanner M.D. on 08/11/2020 at 17:33
== END ==
PROVIDERS: Family Provider Internal Medicine; PCP Internal Medicine; Referring Provider Internal Medicine; Visit Provider Internal Medicine
DX: M25.552 Pain in left hip (principal); M25.562 Pain in left knee; M13.861 Other specified arthritis, right knee; M25.461 Effusion, right knee; Z96.651 Presence of right artificial knee joint
CPT/HCPCS: 73502; 73562

== ENCOUNTER → 2021-10-24 08:55 | Outpatient (CLI) | payer MEDICARE, OTHER, SELFPAY ==
[2018-04-12 19:19] VITALS: BMI 36.4
--- NOTE | 2021-10-24 08:57 | DI.ECHO.S_ITS ---
[facility]---------+ [facility] +---------+ : : [address] : : : : [id number] : : : : Phone: [phone]---------+ Echocardiogram Report + + :Name: BHAVESH FLORES Study Date: 10/24/2021 Height: 69 in : :[facility] ReadingLocation: Weight: 225 lb : : Gender: Male BSA: 2.2 m2 : :: 1955 Age: 65 yrs BP: 152/110 mmHg: :Reason For Study: CHEST PAIN : :Ordering Physician: TAMI, : :SHAHBAZ Donnelly Performed By: Sarah Solomon : :Referring: SHAHBAZ GARRETT : + + Interpretation Summary 1) Mildly to moderately enlarged left ventricle with mildly to moderately reduced systolic function (EF 40-45%). 2) There is a significant dyssynchronous contraction pattern, consistent with a conduction abnormality. 3) Mildly enlarged right ventricle with normal function. 4) Severe biatrial enlargement. 5) No significant valvular abnormalities. 6) Compared to the Echo done 08/17/2016, LVEF has decreased from 45-50% to 40- 45% on this study. Procedure: A two-dimensional transthoracic echocardiogram with color flow and Doppler was performed. The study quality was technically adequate. Comparison is made with the echocardiogram of 08/17/2016. The patient had a bundle branch block rhythm during the exam. The patient was in atrial fibrillation with heart rates between 50-72 bpm during the exam. Left Ventricle: The left ventricle is mild-moderately dilated. There is moderate concentric left ventricular hypertrophy. The ejection fraction is estimated to be 40-45%. There is a significant dyssynchronous contraction pattern, consistent with a conduction abnormality. Right Ventricle: The right ventricle is mildly dilated. The right ventricular systolic function is normal. Atria: The left atrium is severely dilated. The right atrium is severely dilated. There is no Doppler evidence for an interatrial shunt. Mitral Valve: There is mild mitral annular calcification. There is mild mitral regurgitation. Aortic Valve: The aortic valve is trileaflet. The aortic valve opens well. There is no aortic valve stenosis. There is mild aortic regurgitation. Tricuspid Valve: The tricuspid valve leaflets are thin and pliable. There is mild tricuspid regurgitation. Pulmonary artery pressures cannot be estimated because of the lack of a measurable TR jet velocity. Pulmonic Valve: The pulmonic valve leaflets are thin and pliable; valve motion is normal. There is mild pulmonic regurgitation. Great Vessels: The aortic root is normal size. The ascending aorta is at the upper limits of normal in size. The IVC is of normal diameter and collapses greater than 50% with a sniff. This suggests a low right atrial pressure of 3 mm Hg. Pericardium/ Pleura There is no pericardial effusion. There is no pleural effusion. MMode/2D Measurements & Calculations LVIDd: 6.2 cm LVOT diam: 2.1 cm LVIDs: 4.8 cm Ao root diam: 3.9 cm FS: 23.3 % asc Aorta Diam: 3.9 cm EPSS: 1.4 cm Ao Arch Diam (Prox Trans): 3.1 cm IVSd: 1.6 cm LVPWd: 1.2 cm LV dowling. diameter/BSA (cm/m^2): 2.9 LV sys. diameter/BSA (cm/m^2): 2.2 LA A2 area: 32.0 cm2 RA long axis: 7.3 cm LA A4 area: 33.3 cm2 RA area: 30.1 cm2 LA length (vol): 7.1 cm RA vol: 104.8 ml LA vol: 126.6 ml RA : 48.3 ml/m2 LA vol index: 58.3 ml/m2 RVD1 (basal): 4.5 cm RVD2 (mid): 3.7 cm TAPSE: 2.1 cm Doppler Measurements & Calculations Ao V2 max: 155.2 cm/sec LVOT Max Boinlla: 90.9 cm/sec Ao V2 mean: 103.4 cm/sec LV V1 max P.3 mmHg Ao max P.7 mmHg LV V1 VTI: 16.3 cm Ao mean P.0 mmHg BOB(I,D): 2.1 cm2 Ao V2 VTI: 27.5 cm BOB(V,D): 2.0 cm2 sev ratio: 0.59 BOB indexed to BSA (cm^2/m^2): 0.95 MV E max bonilla: 92.3 cm/sec TR max bonilla: 244.8 cm/sec MV A max bonilla: 3.9 cm/sec TR max P.0 mmHg MV E/A: 23.9 PA V2 max: 109.8 cm/sec Med Peak E' Bonilla: 6.1 cm/sec PA V2 mean: 72.8 cm/sec E/E' med: 15.3 PA mean P.5 mmHg Lat Peak E' Bonilla: 5.9 cm/sec PA pr(Accel): 43.0 mmHg E/E' lat: 15.5 E/e' average: 15.4 MV dec time: 0.17 sec SV(LVOT): 56.8 ml Reading Physician:04:52 PM
[2021-10-24 10:41] LABS: COVID19 -Nasal RAPID Negative (Negative)
--- NOTE | 2021-10-24 19:00 | DI.NM.S_ITS ---
DATE OF SERVICE: 10/24/2021 PROCEDURE PERFORMED: Pharmacological perfusion study. INDICATION: Chest pain, LV dysfunction, chronic AFib, left bundle branch block. RADIOPHARMACEUTICAL: 25.8 millicurie technetium-99m Myoview IV was injected at stress and 12.4 millicurie technetium-99m Myoview IV was injected at rest. CARDIAC STRESS: The patient underwent IV Lexiscan perfusion study under the supervision of an attending staff using standard intravenous Lexiscan, as per protocol. The patient remained hemodynamically stable. Baseline blood pressure 122/80. Baseline rhythm was AFib with underlying left bundle branch block with secondary repolarization changes. During stress, patient had moderate shortness of breath. No chest discomfort. During stress, there were no new convincing ischemic changes. The patient remained in AFib. The patient also has frequent PVCs without any ventricular tachycardia. RAW DATA: There is increased subdiaphragmatic activity. The patient's weight is 225 pounds. GATED STUDY: Resting LV ejection fraction 41 and stress LV ejection fraction 42 percent with global hypokinesis. Resting end-diastolic volume 231 mL suggestive of dilated LV. TID ratio 1.02, which is within normal limits. Lung/heart ratio 0.21, which is within normal limits. MYOCARDIAL PERFUSION SCAN: Stress supine, resting supine and stress prone images were compared to each other. The stress supine and resting supine images revealed small-sized severely decreased perfusion of basal inferior wall extending into the basal inferolateral wall, as well as mildly decreased perfusion of inferoapex, which got improved during stress prone images, suggestive of diaphragmatic tissue attenuation artifact. No obvious convincing ischemia or infarction. CONCLUSION: I will call this study likely a normal myocardial perfusion study with evidence of tissue attenuation artifact, as stated above, which got resolved during stress prone images. Dilated left ventricle with stress left ventricular ejection fraction 42 and resting left ventricular ejection fraction 41 percent. Likely, patient has nonischemic cardiomyopathy. Alberto Pradeep - KAE/jet/guillermo doc#: [id number]/job#: [id number] dd: 10/24/2021 17:02:00 dt: 10/24/2021 18:52:00 DICTATING MD/COPIES TO: Sara Young MD COPIES MNE: AKILAH;
== END ==
PROVIDERS: Family Provider Internal Medicine; PCP Internal Medicine; Referring Provider Nurse Practitioner; Visit Provider Nurse Practitioner
DX: R07.9 Chest pain, unspecified (principal); I48.20 Chronic atrial fibrillation, unspecified; Z20.822 Contact with and (suspected) exposure to COVID-19; I51.7 Cardiomegaly
CPT/HCPCS: 78452; 87635; 93017; 93306; A9502; J2785

== ENCOUNTER → 2023-07-25 12:13 | Outpatient (CLI) | payer MEDICARE, OTHER, SELFPAY ==
[2018-04-12 19:19] VITALS: BMI 36.4
--- NOTE | 2023-07-25 12:19 | DI.CT.S_ITS ---
PROCEDURE: CT SOFT TISSUE NECK W CON INDICATIONS: enlarged lymph nodes/headaches/hypertension TECHNIQUE: After the administration of intravenous contrast, 3.0 mm axial sections acquired from the sella to the aortic arch. Additional oblique axial 3.0 mm sections acquired through the pharynx. 3 mm thick coronal and sagittal reformats were generated. For radiation dose reduction, the following was used: automated exposure control. COMPARISON: [facility], CT, CT HEAD/BRAIN WO CON, 07/25/2023, 13:12. FINDINGS: Image quality: Excellent. Lymph nodes: No enlarged lymph nodes seen throughout the neck. There is an enlarged right perihilar lymph node seen, as on series 2, image 95, measuring 18 x 23 mm. Vessels: Visualized vasculature appears patent. Neck spaces: The oropharynx, nasopharynx, and pharynx demonstrate no mucosal lesions. The vocal cords, false vocal cords, pyriform sinuses, epiglottis, vallecula, and tongue base all appear normal. Extramucosal spaces appear unremarkable. Glands: The parotid and submandibular glands appear normal. Thyroid gland demonstrates no significant abnormality. Miscellaneous: Visualized brain and orbits appear normal. Lung apices appear clear. Superficial soft tissues appear normal. Bones: No suspicious bony lesions. Visualized sinuses and mastoids appear unremarkable. Cervical spine degenerative change can be seen, with at least moderate disc space narrowing at C4-C5 and C6-C7. IMPRESSION: No enlarged lymph nodes are seen within the neck. There is an enlarged right perihilar lymph node seen that measures 23 x 18 mm. - If clinically appropriate, please consider a dedicated follow-up chest CT with IV contrast for further evaluation. No soft tissue masses can be seen. Additional findings: Cervical spine degenerative change Dictated by: Azar Chaudhary M.D. on 07/25/2023 at 12:27 Approved by: Azar Chaudhary M.D. on 07/25/2023 at 12:30
--- NOTE | 2023-07-25 12:19 | DI.CT.S_ITS ---
PROCEDURE: CT HEAD/BRAIN WO CON INDICATIONS: enlarged lymph nodes/headaches/hypertension TECHNIQUE: Noncontrast 4.5 mm thick angled axial sections acquired from the foramen magnum to the vertex, with coronal and sagittal reformats. For radiation dose reduction, the following was used: automated exposure control, adjustment of mA and/or kV according to patient size. COMPARISON: [facility], CT, CT SOFT TISSUE NECK W CON, 07/25/2023, 13:12. FINDINGS: Image quality: Diagnostic. CSF spaces: Basal cisterns are patent. No extra-axial fluid collections. The ventricles are symmetric in size and shape. Brain: No intracranial bleeds or masses. There is cerebral volume loss for age, with resultant ventricular and sulcal prominence. There are periventricular and deep white matter chronic small vessel ischemic changes. There is intracranial internal carotid artery atherosclerosis. Skull and face: Calvarium and visualized facial bones appear intact, without suspicious lesions. Sinuses: Visualized sinuses and mastoids are clear. IMPRESSION: Normal noncontrast head CT, without a cause of headache identified. Dictated by: Azar Chaudhary M.D. on 07/25/2023 at 12:26 Approved by: Azar Chaudhary M.D. on 07/25/2023 at 12:27
[2023-07-25 12:48] LABS: Estimated Glomerular Filt Rate > 60 mL/min (>60)
== END ==
LOC: CT 12:15
PROVIDERS: Radiology Diagnostic Radiology; Family Provider Internal Medicine; PCP Internal Medicine; Referring Provider Internal Medicine; Visit Provider Internal Medicine
DX: R59.0 Localized enlarged lymph nodes (principal); I10 Essential (primary) hypertension; G44.89 Other headache syndrome
CPT/HCPCS: 70450; 70491; 82565; Q9967

== ENCOUNTER → 2023-08-31 14:21 | Outpatient (CLI) | payer MEDICARE, OTHER, SELFPAY ==
[2018-04-12 19:19] VITALS: BMI 36.4
--- NOTE | 2023-08-31 14:27 | DI.RAD.S_ITS ---
PROCEDURE: XR CHEST 2V INDICATIONS: Follow up for CT TECHNIQUE: 2 views of the chest were acquired. COMPARISON: [facility], CT, CT SOFT TISSUE NECK W CON, 07/25/2023, 13:12. [facility], CR, CHEST 2 VIEW, 05/15/2016, 15:33. FINDINGS: Surgical changes and devices: None. Lungs and pleura: There is pulmonary vascular congestion. No definite focal infiltrate. No pleural effusions or pneumothorax. Mediastinum: Mediastinal contours are normal. Heart size is enlarged. Bones and chest wall: No suspicious bony abnormalities. Soft tissues appear unremarkable. IMPRESSION: Cardiomegaly and pulmonary vascular congestion. No definite focal infiltrate. No pleural effusion or pneumothorax. Dictated by: Franko Cortez M.D. on 08/31/2023 at 15:41 Approved by: Franko Cortez M.D. on 08/31/2023 at 15:42
== END ==
PROVIDERS: Family Provider Internal Medicine; PCP Internal Medicine; Referring Provider Internal Medicine; Visit Provider Internal Medicine
DX: G44.89 Other headache syndrome (principal); R59.0 Localized enlarged lymph nodes; I51.7 Cardiomegaly; I10 Essential (primary) hypertension; R09.89 Other specified symptoms and signs involving the circulatory and respiratory systems
CPT/HCPCS: 71046

== ENCOUNTER 2023-12-09 15:38 | Emergency (ER) | payer OTHER, SELFPAY ==
[2018-04-12 19:19] VITALS: BMI 36.4
[2023-12-09 15:43] VITALS: BP 188/99; PULSE 56; RESP 15; TEMP 36.6; O2SAT 96; BMI 34.0
--- NOTE | 2023-12-09 16:01 | ED_ITS ---
HPI - Allergic Reaction General Chief complaint: Allergic Reaction Stated complaint: stung by a wasp, bee allergy Time Seen by Provider: 12/09/23 16:01 Source: patient Mode of arrival: Ambulatory History of Present Illness HPI narrative: 67-year-old gentleman with a history of hypertension, coronary disease, chronic pain, chronic atrial fibrillation anticoagulated on warfarin who comes in after a wasp sting to his left neck. In 2019 he had a wasp sting that 4 hours later caused severe hypotension and hospitalization. He comes in for further evaluation. He has not complaining of swelling, dyspnea, coughing. He notes a burning sensation where he was stung on the left side of his neck. No chest pain Related Data Home Medications Medication Instructions Recorded Confirmed fluticasone propionate 50 2 spray intranasal QDAY ##0 11/09/16 04/12/18 mcg/actuation nasal spray,suspension (Flonase Allergy Relief) azelastine 137 mcg (0.1 %) nasal 2 spray intranasal BID PRN 04/11/18 04/12/18 spray aerosol seasonal allergies lisinopril 20 mg tablet 10 mg PO BEDTIME 04/11/18 04/12/18 lisinopril 20 mg tablet 20 mg PO QAM 04/11/18 04/12/18 pramipexole 0.25 mg tablet 2 tab PO BEDTIME 04/11/18 04/11/18 (Mirapex) warfarin 5 mg tablet 5 mg PO DAILY 04/11/18 04/12/18 carvedilol 25 mg tablet 1 tab PO BID 04/12/18 04/12/18 Previous Rx's Medication Instructions Recorded aspirin 81 mg tablet,delayed 81 mg PO BID #60 tabs 04/13/18 release docusate sodium 100 mg capsule 100 mg PO BID #30 caps 04/13/18 hydroxyzine pamoate 25 mg capsule 25 mg PO Q6HR PRN Nausea #30 caps 04/13/18 ondansetron 4 mg disintegrating 4 mg PO Q4HR PRN Nausea #7 tabs 04/13/18 tablet oxycodone 5 mg tablet 5 mg PO Q3HR PRN Pain, Moderate 04/13/18 (4-6) #40 tabs methylprednisolone 4 mg tablets in See Rx Instructions PO .COMPLEX 12/09/23 a dose pack (Medrol (Gaurav)) #21 ea Allergies Allergy/AdvReac Type Severity Reaction Status Date / Time Wasp/hornets Allergy Anaphylaxis Uncoded 12/09/23 15:43 Review of Systems Review of Systems Narrative: Pertinent positive and negative findings as per HPI Patient History Medical History Kidney stone (~03/2018) Diabetes Cardiomyopathy HTN (hypertension) LBBB (left bundle branch block) Afib Pleurisy (~2015) EARLENE on CPAP RLS (restless legs syndrome) Seizure Surgical History S/P trigger finger release Hx of lithotripsy Status post cataract extraction of both eyes with insertion of intraocular lens Social History household members: spouse Smoking Status: Current every day smoker alcohol intake: former Smoking Status: Current every day smoker Substance Use Type: marijuana Exam Initial Vital Signs Initial Vital Signs: Vital Signs Temperature 97.8 F 12/09/23 15:43 Pulse Rate 56 L 12/09/23 15:43 Respiratory Rate 15 12/09/23 15:43 Blood Pressure 188/99 H 12/09/23 15:43 Pulse Oximetry 96 12/09/23 15:43 Oxygen Delivery Method Room Air 12/09/23 15:43 General: in no acute distress. Able to give a complete and coherent history. Well-nourished well-developed HEENT: Moist mucous membranes, normal sclera with reactive pupils, Neck: Completely symmetrical, I do not see obvious sequelae of the sting including redness or erythema. No edema around his neck Respiratory: Lungs are clear to auscultation, no wheezing no rales no rhonchi. Full and symmetrical air movement Cardiac: Irregular without murmurs Abdomen: Soft, nontender, good bowel tones, no flank pain Skin: Warm and dry, no rashes Neurologic: Grossly neurologically intact with no obvious asymmetries or abnormalities Extremities: No trauma, well perfused Psych: Cooperative, appropriate insight and affect Course Orders Ordered: Discontinued Medications Diphenhydramine HCl (Diphenhydramine 25 Mg Tablet) 25 mg PO NOW ONE Stop: 12/09/23 16:08 Last Admin: 12/09/23 16:20 Dose: 25 mg Documented By: WEST Lisinopril (Lisinopril 20 Mg Tablet) 20 mg PO NOW ONE Stop: 12/09/23 16:08 Last Admin: 12/09/23 16:20 Dose: 20 mg Documented By: WEST Vital Signs Vital signs: Vital Signs - 8 hr 12/09/23 15:43 Temperature 97.8 F Pulse Rate 56 L Respiratory Rate 15 Blood Pressure 188/99 H Pulse Oximetry 96 Oxygen Delivery Method Room Air MDM - Allergic Reaction MDM Narrative Medical decision making narrative: CC: Stung by a wasp Complicating co-morbidities: Concerned that he had an anaphylactic reaction to the same in 2019, paroxysmal atrial fibrillation Data collected from: patient Differential considered: Local reaction, mild allergic reaction, anaphylaxis Exam documented above, pertinent findings include: I am seeing no sequelae of his sting, he is maintaining heart rate, blood pressure and there is no wheezing Treatments: He is given 25 mg of Benadryl, 60 mg of prednisone and re-evaluated for a total of 2 hours Discussion: 67-year-old gentleman with a history of an anaphylactic reaction somewhat delayed after a wasp sting 4 years ago. No sequelae of even localized reaction at this point and certainly no suggestion of anaphylaxis. With the history will treat him with Benadryl and prednisone. He is interested in discharge at this time and I believe that is safe. We will recommend Claritin/Zyrtec/Jeanne daily for the next week and Medrol Dosepak to help with any residual effects. Questions are answered he is safe for discharge Discharge Plan Departure Patient Disposition: Home Clinical Impression: Allergic reaction Qualifiers: Encounter type: initial encounter Qualified Code(s): T78.40XA - Allergy, unspecified, initial encounter Instructions: DI for Anaphylaxis Activity Restrictions/Additional Instructions: Thank you for coming in today I am not seeing signs of anaphylaxis today. That is fantastic. You are given oral Benadryl and prednisone in the emergency department. I have given you a prescription for an additional 5 days of steroid, a Medrol Dosepak. [facility] [place] Additionally, I am going to suggest that you take 1 of the nonsedating antihistamines such as Jeanne, Claritin or Zyrtec daily for the next week. If you are feeling itchy or having difficulty sleeping because of the steroids, using Benadryl is safe and appropriate If you find that you are getting worse or develop any new symptoms, please feel free to return to the emergency department for further evaluation. Prescriptions: New methylprednisolone [Medrol (Gaurav)] 4 mg tablets,dose pack See Rx Instructions .ROUTE .COMPLEX Qty: 21 0RF Rx Instructions: for 6 days No Action fluticasone propionate [Flonase Allergy Relief] 9.9 ML spray,suspension 2 spray Intranasal QDAY Qty: 0 lisinopril 20 mg Tablet 20 mg PO QAM lisinopril 20 mg Tablet 10 mg PO BEDTIME warfarin 5 mg Tablet 5 mg PO DAILY pramipexole [Mirapex] 0.25 mg Tablet 2 tab PO BEDTIME azelastine 137 mcg (0.1 %) Aerosol,[place] 2 spray INTRANASAL BID PRN (Reason: seasonal allergies) carvedilol 25 mg tablet 1 tab PO BID docusate sodium 100 mg Capsule 100 mg PO BID Qty: 30 1RF ondansetron 4 mg Tablet,Disintegrating 4 mg PO Q4HR PRN (Reason: Nausea) Qty: 7 1RF oxycodone 5 mg Tablet 5 mg PO Q3HR PRN (Reason: Pain, Moderate (4-6)) Qty: 40 0RF aspirin 81 mg Tablet,Delayed Release (Dr/Ec) 81 mg PO BID Qty: 60 0RF hydroxyzine pamoate 25 mg capsule 25 mg PO Q6HR PRN (Reason: Nausea) Qty: 30 0RF Referrals: Matilda Horner MD [Primary Care Provider] - Stand Alone Forms: Patient Portal/API
[2023-12-09] MEDS: diphenhydrAMINE 25 MG TABLET PO (16:20)
[2023-12-09] MEDS: lisinopriL 20 MG TABLET PO (16:20)
[2023-12-09] MEDS: predniSONE 20 MG TABLET 60 MG PO (17:32)
[2023-12-09 17:37] VITALS: PULSE 62; RESP 20; O2SAT 95
[2023-12-09 18:01] VITALS: BP 169/111; PULSE 66; RESP 16; TEMP 36.5; O2SAT 98
== END 2023-12-09 17:45 | disposition home or self-care (01) ==
PROVIDERS: Emergency Provider Emergency Medicine; Family Provider Internal Medicine; PCP Internal Medicine
DX: T63.461A Toxic effect of venom of wasps, accidental (unintentional), initial encounter (principal)
CPT/HCPCS: 99283